=== PATIENT | female | born 1960 | race American Indian/Alaskan Native ===

== ENCOUNTER 2017-02-23 19:23 | Inpatient (IN) | payer SELFPAY ==
[2017-02-23] MEDS ORDERED: ZOFRAN ODT ONE (19:36)
[2017-02-23] MEDS ORDERED: ZOFRAN ODT PO ONE (19:47)
[2017-02-23] MEDS ORDERED: APRESOLINE ONE (19:58)
[2017-02-23] MEDS ORDERED: APRESOLINE IV ONE ×2 (20:01→22:48)
[2017-02-23 20:52] LABS: Basophils % (Auto) 0.9 % (0.0-1.8); Eosinophils % (Auto) 0.8 % (0.0-4.3); Hematocrit 43.1 % (30.3-42.9); Hemoglobin 13.7 gm/dl (10.1-14.3); Mean Corpuscular HGB Conc 32 % (30-34); Mean Corpuscular Hemoglobin 28 pg (28-32); Mean Corpuscular Volume 87 fl (79-97); Platelet Count 208 K/mm3 (140-440); Red Blood Count 4.95 M/mm3 (3.65-5.03); Red Cell Distribution Width 13.7 % (13.2-15.2); White Blood Count 8.4 K/mm3 (4.5-11.0)
[2017-02-23 21:02] LABS: INR 0.95 (0.87-1.13)
[2017-02-23 21:03] LABS: Partial Thromboplastin Time 26.9 Sec. (24.2-36.6)
[2017-02-23 21:27] LABS: Alanine Aminotransferase 13 units/L (7-56); Albumin 4.2 g/dL (3.9-5); Albumin/Globulin Ratio 1.1 %; Alkaline Phosphatase 63 units/L (35-129); Anion Gap 17 mmol/L; BUN/Creatinine Ratio 13; Blood Urea Nitrogen 8 mg/dL (7-17); Calcium 9.3 mg/dL (8.4-10.2); Carbon Dioxide 27 mmol/L (22-30); Chloride 99.3 mmol/L (98-107); Glucose 137 mg/dL (65-100); Potassium 3.5 mmol/L (3.6-5.0); Sodium 140 mmol/L (137-145)
[2017-02-23] MEDS ORDERED: NACL 0.9% 1000 ML 1,000 ML IV ONE (22:22)
--- NOTE | 2017-02-23 23:22 | Emergency Department Report ---
ED N/V/D HPI - General Chief complaint: Nausea/Vomiting/Diarrhea Stated complaint: WEAKNESS Time Seen by Provider: 02/23/17 22:11 Source: patient, EMS Mode of arrival: Wheelchair Limitations: No Limitations - History of Present Illness Initial comments: 56-year-old female with a past medical history hypertension and obesity presents complaining of lightheadedness with associated nausea and vomiting that started at 6 PM. Patient was at work with symptoms started. She felt lightheaded, became diaphoretic and started having nausea with dry heaving. Patient subsequently began vomiting mucus-like vomitus. Denies hematemesis, fever, diarrhea, melena, or hematochezia. Patient also denies pain during episode and denies headache, chest pain, or shortness of breath. Complains of mild abdominal soreness secondary to vomit specific pain. The patient presents with elevated blood pressures despite medication compliance. She received Zofran prior to my evaluation with improvement in nausea she also received hydralazine for blood pressure. Pt continues to feel lightheaded. - Related Data Allergies Allergy/AdvReac Type Severity Reaction Status Date / Time No Known Allergies Allergy Verified 02/23/17 19:39 ED Review of Systems ROS: Stated complaint: WEAKNESS Other details as noted in HPI Comment: All other systems reviewed and negative Other: Constitutional: No fevers chills Eyes: No eye pain visual changes ENT: No ear pain or throat pain Neck: Denies pain Respiratory: Denies cough wheezing shortness of breath Cardiovascular: Denies chest pain, palpitations, syncope GI: Denies abdominal pain : Denies dysuria Musculoskeletal: Denies back pain Skin: Denies rash, lesions, erythema Neurologic: Denies headache, numbness, weakness Psychiatric: Denies suicidal ideation, hallucinations ED Past Medical Hx - Past Medical History Previous Medical History?: Yes Hx Hypertension: Yes Additional medical history: Obesity - Surgical History Past Surgical History?: Yes Additional Surgical History: Tubal & Hyst - Social History Smoking Status: Never Smoker Substance Use Type: Alcohol ED Physical Exam - General Limitations: No Limitations - Other Other exam information: General: No limitations, patient is alert in no acute distress Head exam: Atraumatic, normocephalic Eyes exam: Normal appearance. Left eyelid swelling secondary to stye ENT: Moist mucous membrane, normal oropharynx Neck exam: Normal inspection, full range of motion, no meningismus nontender Respiratory exam: Clear to auscultation bilateral, no wheezes, rales, crackles Cardiovascular: Normal rate and rhythm, normal heart sounds Abdomen: Soft, nondistended, and nontender, with normal bowel sounds, no rebound, or guarding Extremity: Full range of motion normal inspection no deformity Back: Normal Inspection, full range of motion, no tenderness Neurologic: Alert, oriented x3, cranial nerves intact, no motor or sensory deficit Psychiatric: normal affect, normal mood Skin: Warm, dry, intact ED Course Vital Signs 02/23/17 02/23/17 02/23/17 19:43 20:02 21:00 Temperature 97.3 F L Pulse Rate 94 H 94 H 96 H Respiratory 18 14 Rate Blood Pressure 223/114 Blood Pressure 223/114 198/101 [Right] O2 Sat by Pulse 96 98 Oximetry 02/23/17 02/23/17 22:39 22:56 Temperature Pulse Rate 88 Respiratory 18 Rate Blood Pressure 216/106 Blood Pressure [Right] O2 Sat by Pulse 99 Oximetry - Reevaluation(s) Reevaluation #1: 02/23/17 23:33 She received Zofran and hydralazine and continued to have elevated blood pressure. IV fluids and additional hydralazine initiated. Nausea improved after Zofran ED Medical Decision Making - Lab Data Result diagrams: 02/23/17 20:16 02/23/17 20:16 Lab Results 02/23/17 02/23/17 02/23/17 Range/Units 19:55 20:16 20:16 WBC 8.4 (4.5-11.0) K/mm3 RBC 4.95 (3.65-5.03) M/mm3 Hgb 13.7 (10.1-14.3) gm/dl Hct 43.1 H (30.3-42.9) % MCV 87 (79-97) fl MCH 28 (28-32) pg MCHC 32 (30-34) % RDW 13.7 (13.2-15.2) % Plt Count 208 (140-440) K/mm3 Lymph % (Auto) 28.8 (13.4-35.0) % Jewell % (Auto) 5.1 (0.0-7.3) % Eos % (Auto) 0.8 (0.0-4.3) % Baso % (Auto) 0.9 (0.0-1.8) % Lymph # 2.4 (1.2-5.4) K/mm3 Jewell # 0.4 (0.0-0.8) K/mm3 Eos # 0.1 (0.0-0.4) K/mm3 Baso # 0.1 (0.0-0.1) K/mm3 Seg Neutrophils % 64.4 (40.0-70.0) % Seg Neutrophils # 5.4 (1.8-7.7) K/mm3 PT (12.2-14.9) Sec. INR (0.87-1.13) APTT (24.2-36.6) Sec. Sodium (137-145) mmol/L Potassium (3.6-5.0) mmol/L Chloride (98-107) mmol/L Carbon Dioxide (22-30) mmol/L Anion Gap mmol/L BUN (7-17) mg/dL Creatinine (0.7-1.2) mg/dL Estimated GFR ml/min BUN/Creatinine Ratio % Glucose (65-100) mg/dL POC Glucose 135 H (70-105) Calcium (8.4-10.2) mg/dL Total Bilirubin (0.1-1.2) mg/dL AST (5-40) units/L ALT (7-56) units/L Alkaline Phosphatase (35-129) units/L Troponin T < 0.010 (0.00-0.029) ng/mL Total Protein (6.3-8.2) g/dL Albumin (3.9-5) g/dL Albumin/Globulin Ratio % 02/23/17 02/23/17 Range/Units 20:16 20:16 WBC (4.5-11.0) K/mm3 RBC (3.65-5.03) M/mm3 Hgb (10.1-14.3) gm/dl Hct (30.3-42.9) % MCV (79-97) fl MCH (28-32) pg MCHC (30-34) % RDW (13.2-15.2) % Plt Count (140-440) K/mm3 Lymph % (Auto) (13.4-35.0) % Jewell % (Auto) (0.0-7.3) % Eos % (Auto) (0.0-4.3) % Baso % (Auto) (0.0-1.8) % Lymph # (1.2-5.4) K/mm3 Jewell # (0.0-0.8) K/mm3 Eos # (0.0-0.4) K/mm3 Baso # (0.0-0.1) K/mm3 Seg Neutrophils % (40.0-70.0) % Seg Neutrophils # (1.8-7.7) K/mm3 PT 13.1 (12.2-14.9) Sec. INR 0.95 (0.87-1.13) APTT 26.9 (24.2-36.6) Sec. Sodium 140 (137-145) mmol/L Potassium 3.5 L (3.6-5.0) mmol/L Chloride 99.3 (98-107) mmol/L Carbon Dioxide 27 (22-30) mmol/L Anion Gap 17 mmol/L BUN 8 (7-17) mg/dL Creatinine 0.6 L (0.7-1.2) mg/dL Estimated GFR > 60 ml/min BUN/Creatinine Ratio 13 % Glucose 137 H (65-100) mg/dL POC Glucose (70-105) Calcium 9.3 (8.4-10.2) mg/dL Total Bilirubin 0.30 (0.1-1.2) mg/dL AST 17 (5-40) units/L ALT 13 (7-56) units/L Alkaline Phosphatase 63 (35-129) units/L Troponin T (0.00-0.029) ng/mL Total Protein 8.0 (6.3-8.2) g/dL Albumin 4.2 (3.9-5) g/dL Albumin/Globulin Ratio 1.1 % - EKG Data -: EKG Interpreted by [facility] EKG shows normal: sinus rhythm, axis (207), QRS complexes (88), ST-T waves (lat wave inv) Rate: normal (84) - EKG Data When compared to previous EKG there are: previous EKG unavailable - Medical Decision Making Plans admit patient to the hospital for uncontrolled hypertension and associated nausea and lightheadedness. Abdomen nontender. Labs within normal limits. EKG abnormal with no comparison. Hospitalist informed for admission - Differential Diagnosis hypertensive urgency/emergency, gastritis, pancreatitis, hepatitis, CT Critical Care Time: No Critical care attestation.: If time is entered above; I have spent that time in minutes in the direct care of this critically ill patient, excluding procedure time. ED Disposition Clinical Impression: Uncontrolled hypertension, Vomiting, Lightheadedness Disposition: OP ADMIT IP TO THIS HOSP Is pt being admited?: Yes Condition: Stable Time of Disposition: 23:35 (Dr casillas/hosp)
--- NOTE | 2017-02-24 00:02 | History and Physical Report ---
History of Present Illness Date of examination: 02/24/17 History of present illness: 56-year-old woman with a history of hypertension, states she is compliant with medication comes emergency room with complains of nausea and vomiting, diaphoresis and feeling lightheaded. Patient does not check her blood pressure at home but states that overall most of the times it is high Review Of Systems: Constitutional: no weight loss Ears, eyes, nose, mouth and throat: no nasal congestion, no nasal discharge, no sinus pressure, blurry vision, diplopia Neck: No neck pain or rigidity. Cardiovascular: No chest pain, palpitations Respiratory: No shortness of breath, cough Gastrointestinal: No abdominal pain, hematochezia Genitourinary : no dysuria, frequency , hematuria Musculoskeletal: no muscle ache Integumentary: no rash, no pruritis Neurological: no parathesias, focal weakness Endocrine: no cold or heat intolerance, no polyuria or polydipsia Hematologic/Lymphatic: no easy bruising, no easy bleeding, no gland swelling Allergic/Immunologic: no urticaria, no angioedema. PAST MEDICAL HISTORY: hypertension PAST SURGICAL HISTORY: Hysterectomy, tubal ligation FAMILY HISTORY: hypertension SOCIAL HISTORY: Denies alcohol, tobacco, drug Medications and Allergies Allergies Allergy/AdvReac Type Severity Reaction Status Date / Time No Known Allergies Allergy Verified 02/23/17 19:39 Exam - Physical Exam Narrative exam: Gen. appearance: Patient lying in bed in no acute distress HEENT: Normocephalic/atraumatic, pupils equal round reactive to light, extra occular movement intact, outer part of the eye is red , no scleral icterus, no JVD or thyromegaly or nodule, neck is supple, mucous membrane moist, no erythema or exudate Heart: S1-S2, regular rate and rhythm Lungs: Clear to auscultation bilateral breathing comfortable Abdomen: Positive bowel sounds, nontender, nondistended, no organomegaly Extremities: No edema, cyanosis, clubbing Neuro:: Oriented 3 , cranial nerves II-12 intact, speech, motor intact Skin: No rash, nodules, warm dry - Constitutional Vitals: Temp Pulse Resp BP Pulse Ox 97.3 F L 93 H 19 178/104 98 02/23/17 19:43 02/23/17 23:30 02/23/17 23:00 02/23/17 23:30 02/23/17 23:30 Results - Labs CBC & Chem 7: 02/23/17 20:16 02/23/17 20:16 Labs: Abnormal lab results 02/23/17 02/23/17 02/23/17 Range/Units 19:55 20:16 20:16 Hct 43.1 H (30.3-42.9) % Potassium 3.5 L (3.6-5.0) mmol/L Creatinine 0.6 L (0.7-1.2) mg/dL Glucose 137 H (65-100) mg/dL POC Glucose 135 H (70-105) Assessment and Plan Assessment Hypertensive urgency Plan Admit the patient to medicine Stars labetalol drip, check CAT scan of the head, cardiac enzymes Consult critical care, DVT prophylaxis
[2017-02-24] MEDS ORDERED: NORMODYNE 200 MG in D5W 160 ML IV ONE (00:29)
[2017-02-24] MEDS ORDERED: TYLENOL PO PRN (00:31)
[2017-02-24] MEDS ORDERED: DULCOLAX PR PRN (00:31)
[2017-02-24] MEDS ORDERED: MORPHINE IV PRN (00:31)
[2017-02-24] MEDS ORDERED: MILK OF MAGNESIA PO PRN (00:31)
--- NOTE | 2017-02-24 01:17 | XRay Report ---
FINAL REPORT EXAM: XR CHEST 1V AP HISTORY: htn, nausea, vomit TECHNIQUE: A portable upright view of the chest was submitted. FINDINGS: The heart is mildly enlarged. The lungs are clear. Pleural fluid is not seen. There are EKG leads overlying the chest wall. The bones and soft tissues reveal obesity. IMPRESSION: Cardiomegaly. No active chest disease.
--- NOTE | 2017-02-24 04:22 | Cat Scan Report ---
FINAL REPORT EXAM: CT HEAD/BRAIN W CON HISTORY: dizziness, n/v TECHNIQUE: Routine axial imaging was obtained of the brain without IV contrast. There are no previous studies available for comparison. FINDINGS: There is no evidence of acute stroke or hemorrhage. The ventricular system is appropriate in size and is symmetric. The basal cisterns appear normal. The sinuses reveal opacification of several of the right ethmoidal air cells. The mastoid air cells are well pneumatized. The sella appears enlarged. IMPRESSION: No acute intracranial process. Patchy right ethmoidal sinusitis. Enlargement of the sella which is non specific.
[2017-02-24 04:48] LABS: Mucus,Urine FEW /HPF
[2017-02-24 05:03] LABS: Bilirubin,Urine Negative (Negative); Ketones,Urine Negative (Negative)
[2017-02-24 05:04] LABS: Blood,Urine Negative (Negative); Leukocyte Esterase,Urine Negative (Negative); Nitrite,Urine Negative (Negative); Urobilinogen,Urine < 2.0 mg/dL (<2.0)
[2017-02-24] MEDS: NACL 0.45% 1000 ML 1,000 ML IV SCH ×2 (06:13→20:02)
[2017-02-24] MEDS: ZOFRAN IV PRN (06:13)
[2017-02-24 07:46] LABS: Creatine Kinase MB 3.2 ng/mL (0.0-4.0)
[2017-02-24 07:59] LABS: Creatine Kinase 120 units/L (30-135)
[2017-02-24] MEDS: LOVENOX SUB-Q SCH (09:46)
[2017-02-24 09:53] LABS: Creatine Kinase MB 3.3 ng/mL (0.0-4.0)
[2017-02-24 09:54] LABS: Creatine Kinase 111 units/L (30-135)
[2017-02-24] MEDS ORDERED: Fluarix Quad 2017-2018(36 MOS+ IM ONE (12:00)
--- NOTE | 2017-02-24 15:11 | Event Note ---
Date: 02/24/17 Pt who was admitted today was seen and examined. Had abn admitting diagniosis of hypertenisve emergency, N/V. BP improving. will continue with same traetment plan and f/u with ordered lab results. Identified hypokalemia will be corrected.
[2017-02-24] MEDS: K-DUR PO SCH (17:02)
[2017-02-24] MEDS: ZESTRIL PO SCH (21:48)
[2017-02-25] MEDS: APRESOLINE IV PRN ×3 (05:45→14:20)
[2017-02-25 05:49] LABS: Basophils % (Auto) 0.7 % (0.0-1.8); Eosinophils % (Auto) 0.7 % (0.0-4.3); Hematocrit 40.9 % (30.3-42.9); Hemoglobin 13.8 gm/dl (10.1-14.3); Mean Corpuscular HGB Conc 34 % (30-34); Mean Corpuscular Hemoglobin 29 pg (28-32); Mean Corpuscular Volume 86 fl (79-97); Platelet Count 192 K/mm3 (140-440); Red Blood Count 4.74 M/mm3 (3.65-5.03); Red Cell Distribution Width 13.8 % (13.2-15.2); White Blood Count 7.6 K/mm3 (4.5-11.0)
[2017-02-25] MEDS: K-DUR PO SCH ×2 (08:26→09:30)
[2017-02-25] MEDS: ZESTRIL PO SCH ×2 (08:26→09:31)
[2017-02-25] MEDS: LOVENOX SUB-Q SCH ×2 (08:26→09:31)
[2017-02-25] MEDS: NACL 0.45% 1000 ML 1,000 ML IV SCH (08:26)
[2017-02-25 08:47] LABS: Anion Gap 20 mmol/L; BUN/Creatinine Ratio 13; Blood Urea Nitrogen 8 mg/dL (7-17); Calcium 9.1 mg/dL (8.4-10.2); Carbon Dioxide 24 mmol/L (22-30); Chloride 102.2 mmol/L (98-107); Glucose 100 mg/dL (65-100); Potassium 3.8 mmol/L (3.6-5.0); Sodium 142 mmol/L (137-145)
[2017-02-25] MEDS ORDERED: NORVASC PO SCH (10:00)
[2017-02-25] MEDS: ZOFRAN IV PRN (10:27)
--- NOTE | 2017-02-25 10:46 | Discharge Summary ---
Providers - Providers Date of Admission: 02/24/17 00:02 Attending physician: THU NICOLAS MD Primary care physician: YANG MOTT Hospitalization Reason for admission: Hypertensive Urgency Condition: Stable Pertinent studies: CT head normal CXR normal Hospital course: 56-year-old woman with a history of hypertension, states she is compliant with medication comes emergency room with complains of nausea and vomiting, diaphoresis and feeling lightheaded. Patient does not check her blood pressure at home but states that overall most of the times it is high. Patient was admitted and her BP is controlled and her symptoms resolved. Her medications were refilled and advised to be compliant with her medications and heve follow up with her PCP. Patient was hemodynamically stable at the time of discharge. Disposition: [place]- TO HOME OR SELFCARE Time spent for discharge: 31 minutes - Discharge Diagnoses (1) Lightheadedness Status: Acute (2) Uncontrolled hypertension Status: Acute (3) Vomiting Status: Acute Core Measure Documentation - Palliative Care Palliative Care/ Comfort Measures: Not Applicable - Core Measures Any of the following diagnoses?: none Exam - Constitutional Vitals: Temp Pulse Resp BP Pulse Ox 98.7 F 79 18 176/82 97 02/25/17 07:55 02/25/17 07:56 02/25/17 07:55 02/25/17 07:55 02/25/17 07:56 General appearance: Present: no acute distress, obese - EENT Eyes: Present: PERRL ENT: hearing intact, clear oral mucosa - Neck Neck: Present: supple, normal ROM - Respiratory Respiratory effort: normal Respiratory: bilateral: CTA - Cardiovascular Rhythm: regular Heart Sounds: Present: S1 & S2 - Extremities Extremities: no ischemia, No edema, Full ROM Extremity abnormal: edema, erythema Peripheral Pulses: within normal limits - Integumentary Integumentary: Present: clear, warm, dry - Musculoskeletal Musculoskeletal: strength equal bilaterally - Psychiatric Psychiatric: appropriate mood/affect - Neurologic Neurologic: CNII-XII intact Plan Activity: no restrictions Weight Bearing Status: Full Weight Bearing Diet: low fat, low cholesterol, low salt Follow up with: YANG MOTT MD [Primary Care Provider] - 7 Days Prescriptions: amLODIPine [Norvasc] 10 mg PO QDAY #30 tablet Lisinopril [Zestril] 40 mg PO DAILY #30 tablet Ondansetron [Zofran ODT TAB] 4 mg PO Q8HR #10 tab.[email or web address]
[2017-02-25] MEDS ORDERED: APRESOLINE IV ONE (14:19)
[2017-02-25 16:24] VITALS: BP 120/78
== END 2017-02-25 16:33 | disposition home or self-care (01) | DRG 305 ==
LOC: ED 19:23 → 4A 02-24 00:02
PROVIDERS: ADMIT Internal Medicine; ATTEND Internal Medicine
PROC: 3E0234Z Introduction of Serum, Toxoid and Vaccine into Muscle, Percutaneous Approach (ICD-10-PCS; principal; 2017-02-24)
DX: I16.1 Hypertensive emergency (principal); Z90.710 Acquired absence of both cervix and uterus; Z98.51 Tubal ligation status; I16.0 Hypertensive urgency; E87.6 Hypokalemia; Z23 Encounter for immunization
CPT/HCPCS: 36415; 70460; 71010; 80048; 80053; 81001; 82550; 82553; 82962; 83735; 84484; 85025; 85610; 85730; 90686; 93005; 93010; 96361; 96374; 96375; 99285; J0360; J1650; J2270; J2405; J7030; Q0162